=== PATIENT | female | born 1990 | race Caucasian/White ===

== ENCOUNTER 2023-05-27 06:24 | Inpatient (IN) | payer MEDICAID, SELFPAY ==
[2023-05-27] VITALS (123 sets, daily range): BP systolic 100–133; BP diastolic 30–85; PULSE 25–241; RESP 16–18; TEMP 36.4–37.3; O2SAT 79–100; BMI 30.8
--- NOTE | ~2023-05-27 | US_ITS ---
EXAMINATION: US OB follow up DATE: 05/27/2023 08:36 INDICATION: growth assessment during third trimester , no care TECHNIQUE: Real-time ultrasound of the pelvis was performed. The interpreting radiologist was not pre sent for the study. COMPARISON: None. FINDINGS: There is a single living fetus in vertex presentation. The placenta is anterior. card iac activity and movement are noted. heart rate is 143 beats per minute (bpm). The amniot ic fluid index is 18.5 which is normal (normal range: 7.5 cm to 24.4 cm). The following biometric data were obtained: Biparietal diameter (BPD): 8.4 cm; head circumference (HC): 32.7 cm; abdominal circumference (AC): 34 .7 cm; femur length (FL): 7.5 cm. Estimated weight is 3319 g +/- 497 g. The femoral length to b iparietal diameter ratio is greater than two standard deviations above the mean. As single measurements, these parameters are each equal to the following estimated gestational ages w ith ranges of +/- 2 standard deviations: BPD: 33 weeks 6 days +/- 3 weeks 1 days. HC: 37 weeks 1 days +/- 2 weeks 5 days. AC: 38 weeks 5 days +/- 3 weeks 0 days. FL: 38 weeks 4 days +/- 3 weeks 1 days. estimated gestational age based solely on measurements from this exam is 37 weeks 1 days +/- 2 weeks 4 days. IMPRESSION: 1. Single living fetus in vertex presentation. 2. estimated gestational age based solely on measurements from this exam is 37 weeks 1 days +/- 2 weeks 4 days within estimated due date of 06/16/2023. Reviewed, dictated and finalized at location B. AND DIE MAKER APPRENTICE
[2023-05-27 07:20] LABS: Basophils Absolute Auto 0.1 K/mm3 (0.0-0.1); Basophils Percent Auto 0.3 % (0.2-1.2); Eosinophils Absolute Auto 0.1 K/mm3 (0-0.3); Eosinophils Percent Auto 0.4 % (0-4.4); Hematocrit 34.4 % (37.0-47.0); Immature Granulocyte Absolute 0.63 K/mm3 (0.00-0.031); Immature Granulocyte Percent A 2.5 % (0-0.5); Lymphocytes Absolute Auto 1.64 K/mm3 (0.9-3.2); Lymphocytes Percent Auto 6.4 % (18.3-44.2); Mean Corpuscular Hemoglobin 28.8 pg (26-34); Mean Corpuscular Volume 90.1 fl (80-100); Mean Platelet Volume 11.3 fl (7.4-10.4); Monocytes Absolute Auto 1.5 K/mm3 (0.1-0.6); Monocytes Percent Auto 5.8 % (2.6-8.5); Neutrophils Absolute Auto 21.7 K/mm3 (1.3-6.7); Neutrophils Percent Auto 84.6 % (45.5-73.1); Platelet Count Result 338 k/mm3 (150-375); Red Blood Count 3.82 M/mm3 (4.2-5.4); Red Cell Distribution Width 14.5 % (11.5-14.5); White Blood Count 25.7 K/mm3 (4.5-10.0)
[2023-05-27] MEDS: LACTATED RINGERS 1,000 ML 999 ML IV CONT (07:36)
[2023-05-27 07:37] LABS: Amphetamine Screen Urine Negative (Negative); Barbiturate Screen Urine Negative (Negative); Benzodiazepines Screen Urine Negative (Negative); Cannabinoid Screen Urine Positive (Negative); Cocaine Screen Urine Negative (Negative); Methadone Screen Urine Negative (Negative); Opiate Screen Urine Negative (Negative); Phencyclidine Screen Urine Negative (Negative)
[2023-05-27 07:43] LABS: Alanine Aminotransferase 17 U/L (6-35); Albumin Level 3.6 g/dL (3.5-5.1); Alkaline Phosphatase 198 U/L (38-126); Anion Gap 8 mmol/L (8-16); Aspartate Amino Transferase 24 U/L (14-36); Bilirubin,Total 0.3 mg/dL (0.2-1.3); Blood Urea Nitrogen 16 mg/dL (7-17); Carbon Dioxide 17 mmol/L (22-30); Chloride 107 mmol/L (98-107); Estimated Glomerular Filt Rate > 60; Glucose 91 mg/dL (65-110); Potassium 3.9 mmol/L (3.4-5.0); Sodium 132 mmol/L (137-145); Uric Acid 4.8 mg/dL (2.5-7.5)
[2023-05-27 07:44] LABS: Creatinine Urine 33.9 mg/dL
[2023-05-27 07:46] LABS: Total Protein Urine Random < 5 mg/dL; Ur Ttl Prot Creatinine Ratio < 0.15 mg/mg (0-0.20)
[2023-05-27] MEDS: AMPICILLIN 2 GM/NS 100 ML 2 GM/100 ML BAG IVPB (07:50)
[2023-05-27 07:51] LABS: Appearance Urine Clear (Clear); Bacteria Urine None Seen /hpf; Bilirubin Urine Negative (Negative); Blood Urine Negative (Negative); Color Urine Yellow (Yellow); Glucose Urine UA Negative (Negative); Ketones Urine Negative (Negative); Leukocyte Esterase Ur 1+ LEU/UL (NEGATIVE); Need Manual Microscopic Reviewed; Nitrate Urine Negative (Negative); Non Pathogenic Casts 0-2; Protein Urine Negative (Negative); RBC Urine 0-2 /hpf (0-2); Specific Grav Ur 1.013 (1.001-1.035); Squamous Epithelial Cell Urine None seen /hpf (Few); Urobilinogen Urine 0.2 mg/dL (<2.0); WBC Urine 0-5 /hpf (0-3)
[2023-05-27 07:53] LABS: Add Urine Microscopic? YES
[2023-05-27 08:06] LABS: HIV 1/2 Ab P24 Ag Result Negative (Negative)
[2023-05-27 08:27] LABS: Hepatitis B Surface Antigen Negative (Negative); Rubella IgG Antibody 27.7 IU/ML
[2023-05-27 09:43] LABS: Rapid Plasma Reagin Reactive (NonReactive)
--- NOTE | 2023-05-27 09:48 | WPDANESEPP ---
Anes - Eval Pre Procedure Procedure: labor epidural Date/Time: 05/27/23 09:48 Surgeon: fredi Preop Diagnosis: pain during labor Pre Op Diagnosis: Labor Patient Data Age: 33 Gender: F Height: 1.57 m Weight: 76.5 kg Last Vital Signs Temp 36.4 C 05/27/23 09:19 Pulse 92 05/27/23 09:45 Resp 16 05/27/23 06:49 BP 116/77 05/27/23 09:45 O2 Del Method Room Air 05/27/23 08:11 Allergies Allergy/AdvReac Type Severity Reaction Status Date / Time naproxen Allergy Hives Verified 05/27/23 07:50 Home Medications Medication Instructions Recorded Confirmed Type No Home Medications 05/27/23 05/27/23 History Laboratory Tests 05/27/23 05/27/23 06:59 07:05 WBC 25.7 H K/mm3 (4.5-10.0) RBC 3.82 L M/mm3 (4.2-5.4) Hgb 11.0 L g/dL (12.0-15.0) Hct 34.4 L % (37.0-47.0) MCV 90.1 fl (80-100) MCH 28.8 pg (26-34) MCHC 32.0 g/dl (32-36) RDW 14.5 % (11.5-14.5) Plt Count 338 k/mm3 (150-375) MPV 11.3 H fl (7.4-10.4) Immature Gran % (Auto) 2.5 H % (0-0.5) Neut % (Auto) 84.6 H % (45.5-73.1) Lymph % (Auto) 6.4 L % (18.3-44.2) [place] % (Auto) 5.8 % (2.6-8.5) Eos % (Auto) 0.4 % (0-4.4) Baso % (Auto) 0.3 % (0.2-1.2) Lymph # (Auto) 1.64 K/mm3 (0.9-3.2) [place] # (Auto) 1.5 H K/mm3 (0.1-0.6) Eos # (Auto) 0.1 K/mm3 (0-0.3) Baso # (Auto) 0.1 K/mm3 (0.0-0.1) Abs Immat Gran (auto) 0.63 H K/mm3 (0.00-0.031) Absolute Neuts (auto) 21.7 H K/mm3 (1.3-6.7) Absolute Nucleated RBC 0.0 K/mm3 (0.0-0.012) Nucleated RBC % 0.0 % (0.0-0.2) Sodium 132 L mmol/L (137-145) Potassium 3.9 mmol/L (3.4-5.0) Chloride 107 mmol/L (98-107) Carbon Dioxide 17 L mmol/L (22-30) Anion Gap 8 mmol/L (8-16) BUN 16 mg/dL (7-17) Creatinine 0.50 L mg/dL (0.7-1.0) Estim Creat Clear Calc Not Reportable Estimated GFR > 60 (59 - ) Glucose 91 mg/dL (65-110) Uric Acid 4.8 mg/dL (2.5-7.5) Calcium 9.0 mg/dL (8.4-10.2) Total Bilirubin 0.3 mg/dL (0.2-1.3) AST 24 U/L (14-36) ALT 17 U/L (6-35) Alkaline Phosphatase 198 H U/L (38-126) Total Protein 7.0 g/dL (6.3-8.2) Albumin 3.6 g/dL (3.5-5.1) Urine Color Yellow (Yellow) Urine Appearance Clear (Clear) Urine pH 6.0 (5.0-9.0) Ur Specific [place] 1.013 (1.001-1.035) Urine Protein Negative mg/dL (Negative) Urine Glucose (UA) Negative mg/dL (Negative) Urine Ketones Negative mg/dL (Negative) Ur Blood (Man) Negative (Negative) Urine Nitrate Negative (Negative) Urine Bilirubin Negative (Negative) Urine Urobilinogen 0.2 mg/dL (<2.0) Ur Leukocyte Esterase 1+ H [place]/UL (NEGATIVE) Add Ur Microanalysis Reviewed Urine RBC 0-2 /hpf (0-2) Urine WBC 0-5 /hpf (0-3) Ur Squamous Epith Cells None seen /hpf (Few) Urine Bacteria None seen /hpf Urine Casts 0-2 U Random Total Protein < 5 mg/dL Urine Creatinine 33.9 mg/dL Protein/Creat Ratio 2 < 0.15 mg/mg (0-0.20) Urine Opiates Screen Negative (Negative) Urine Methadone Screen Negative (Negative) Ur Barbiturates Screen Negative (Negative) Ur Phencyclidine Scrn Negative (Negative) Ur Amphetamine Screen Negative (Negative) U Benzodiazepines Scrn Negative (Negative) Urine Cocaine Screen Negative (Negative) U Cannabinoids Screen Positive A (Negative) RPR Reactive A (NonReactive) T.pallidum Ab (FTA-ABS) Pending Hep Bs Antigen Negative (Negative) HIV 1&2 Ab/P24 Ag 4thGn Negative (Negative) Rubella IgG Antibody 27.7 IU/ML
--- NOTE | 2023-05-27 10:00 | PM.IMHP ---
H&P: HPI History of Present Illness Date/Time: 05/27/23 10:00 Chief Complaint: Contractions Narrative: 33 y/o presented via ambulance with c/o contractions which started becoming regular at 5 am. She has not had any care. She thinks her edc is beginning of Mar based on unsure LMP. She has a history of chronic hypertension as a child and was medicated from age [age] with Clonidine. She had 2 vaginal deliveries. She has h/o marijuane use and smokes approximately 2-3 cigs/week. Denies spotting or leaking. Ultrasound today showed fetus cephalic 37 weeks. BP increased per EMS, she has had normal blood pressures since presenting to L and D. Review of Systems Review of Systems: All systems reviewed & are unremarkable except as noted in HPI and below Constitutional: Constitutional: Reports no additional constitutional complaints and Denies headache(s) Eyes: Eyes: Denies spots in vision ENT: Reports system reviewed and no additional complaints, except as documented and Denies headache(s) Cardiovascular: Cardiovascular: Denies chest pain and Denies dyspnea Respiratory: Respiratory: Denies dyspnea Gastrointestinal: Gastrointestinal: Reports no additional gastrointestinal complaints Genitourinary: Genitourinary: Reports amenorrhea Musculoskeletal: Musculoskeletal: Reports no additional musculoskeletal complaints Integumentary/Breasts: Skin/Breast: Denies breast mass and Denies rash Neurologic: Denies headache(s) Psychiatric: Psychiatric: Reports no additional psychiatric complaints [facility] Past Medical History Medical History (Updated 05/27/23 @ 09:49 by Mable Kang CRNA) HTN (hypertension) IUP (intrauterine ), incidental Social History Social History Smoking status: Current every day smoker Tobacco type: cigarettes and e-cigarettes/vaping Second hand tobacco smoke exposure: Yes Substance use: former Do You Feel Safe in your Home?: Yes Lack of Transportation: No Lack of Food: Never True Current Housing: I Do Not Have Housing Concerned About Future Housing: No Difficulty Paying Gas/Electric Bills: No Difficulty Paying for Meds: No Currently Unemployed: YES Education: Grade School Difficulty w/ Childcare or Family Care: No Spiritual care concerns: No Meds Home Medications and Allergies Home Medications Medication Instructions Recorded Confirmed Type No Home Medications 05/27/23 05/27/23 History Allergies Allergy/AdvReac Type Severity Reaction Status Date / Time naproxen Allergy Hives Verified 05/27/23 07:50 Vital Signs Vital Signs - 24 hr 05/27/23 06:46 05/27/23 06:49 05/27/23 07:01 Temperature 98 F Pulse Rate 98 99 Respiratory Rate 16 Blood Pressure 129/78 111/85 Oxygen Delivery 05/27/23 07:18 05/27/23 07:30 05/27/23 07:45 Temperature Pulse Rate 92 93 93 Respiratory Rate Blood Pressure 125/63 127/85 133/83 Oxygen Delivery 05/27/23 08:00 05/27/23 08:15 05/27/23 08:30 Temperature 97.8 F Pulse Rate 92 88 86 Respiratory Rate Blood Pressure 113/80 126/76 125/73 Oxygen Delivery 05/27/23 08:45 05/27/23 09:01 05/27/23 09:16 Temperature Pulse Rate 90 87 98 Respiratory Rate Blood Pressure 120/75 124/69 121/65 Oxygen Delivery 05/27/23 09:19 05/27/23 09:30 05/27/23 09:45 Temperature 97.6 F Pulse Rate 92 92 Respiratory Rate Blood Pressure 119/75 116/77 Oxygen Delivery 05/27/23 07:57 05/27/23 08:11 Temperature 97.8 F Pulse Rate Respiratory Rate Blood Pressure Oxygen Delivery Room Air Exam Const: General: no acute distress Eyes: General: appearance normal, both eyes and all related structures Neck: Neck: normal visual inspection Resp: Effort & Inspection: normal respiratory effort Cardio: Rate: regular rate GI: Inspection: normal to inspection Other: Gravid no fundal tenderness no right upper quadrant pain : External Fem
[2023-05-27] MEDS: LACTATED RINGERS 1,000 ML 125 ML IV CONT ×2 (11:14→13:54)
[2023-05-27] MEDS: AMPICILLIN 1 GM/NS 50 ML 1 GM/50 ML BAG IVPB (11:42)
--- NOTE | 2023-05-27 12:14 | P.PNOB_ITS ---
OB - PN: Subj Subjective Date/time seen: 05/27/23 1155 Interval history: FHT 135 cat 1, AROM clear, 7/c/-2. Continue expectant management. OB - PN: Obj Data Labs 05/27/23 07:05 05/27/23 06:59 Labs: Laboratory Results - last 24 hr 05/27/23 05/27/23 06:59 07:05 WBC 25.7 H RBC 3.82 L Hgb 11.0 L Hct 34.4 L MCV 90.1 MCH 28.8 MCHC 32.0 RDW 14.5 Plt Count 338 MPV 11.3 H Immature Gran % (Auto) 2.5 H Neut % (Auto) 84.6 H Lymph % (Auto) 6.4 L [place] % (Auto) 5.8 Eos % (Auto) 0.4 Baso % (Auto) 0.3 Lymph # (Auto) 1.64 [place] # (Auto) 1.5 H Eos # (Auto) 0.1 Baso # (Auto) 0.1 Abs Immat Gran (auto) 0.63 H Absolute Neuts (auto) 21.7 H Absolute Nucleated RBC 0.0 Nucleated RBC % 0.0 Sodium 132 L Potassium 3.9 Chloride 107 Carbon Dioxide 17 L Anion Gap 8 BUN 16 Creatinine 0.50 L Estim Creat Clear Calc Not Reportable Estimated GFR > 60 Glucose 91 Uric Acid 4.8 Calcium 9.0 Total Bilirubin 0.3 AST 24 ALT 17 Alkaline Phosphatase 198 H Total Protein 7.0 Albumin 3.6 Urine Color Yellow Urine Appearance Clear Urine pH 6.0 Ur Specific [place] 1.013 Urine Protein Negative Urine Glucose (UA) Negative Urine Ketones Negative Ur Blood (Man) Negative Urine Nitrate Negative Urine Bilirubin Negative Urine Urobilinogen 0.2 Ur Leukocyte Esterase 1+ H Add Ur Microanalysis Reviewed Urine RBC 0-2 Urine WBC 0-5 Ur Squamous Epith Cells None seen Urine Bacteria None seen Urine Casts 0-2 U Random Total Protein < 5 Urine Creatinine 33.9 Protein/Creat Ratio 2 < 0.15 Urine Opiates Screen Negative Urine Methadone Screen Negative Ur Barbiturates Screen Negative Ur Phencyclidine Scrn Negative Ur Amphetamine Screen Negative U Benzodiazepines Scrn Negative Urine Cocaine Screen Negative U Cannabinoids Screen Positive A RPR Reactive A Hep Bs Antigen Negative HIV 1&2 Ab/P24 Ag 4thGn Negative Rubella IgG Antibody 27.7 Blood Type O Positive Antibody Screen Negative Imaging Radiologist's impression: Impressions Obstetrics Ultrasound 05/27/23 08:56 IMPRESSION: 1. Single living fetus in vertex presentation. 2. estimated gestational age based solely on measurements from this exam is 37 weeks 1 days +/- 2 weeks 4 days within estimated due date of 06/16/2023. OB - PN A/P Time Spent With Patient Time: Total time spent is greater than 50% in coordination of care (as documented) at patient's floor/unit and/or counseling patient:
[2023-05-27] MEDS: OXYTOCIN 30 UNITS/NS 500 ML 30 UNITS/500 ML BAG IV CONT (14:00)
[2023-05-27] MEDS: OXYTOCIN 30 UNITS/NS 500 ML 30 UNITS/500 ML BAG 999 UNITS IV CONT (15:12)
--- NOTE | 2023-05-27 15:29 | P.PCNOB_ITS ---
OB - Vaginal Delivery Note Procedure Delivery date: 05/27/23 Events: No Care Delivery augmentation: Rupture of Membranes and Pitocin Delivery monitor: External FHT and Internal Uterine Route of delivery: Episiotomy description: None Laceration Description: Vaginal (first degree vaginal hemostasis with 3.0 vicryl figure of eight) Delivery repair: vicryl (3.0 vicryl) Specimen: No Quantitative Blood Loss (ml): 150 Anesthesia type: Epidural Disposition: Floor Complications: No immediate complications Narrative: She was admitted in labor. She was started on IV antibiotics for unknown GBS. She is 37 weeks by todays ultrasound. She progressed to 7 and had AROM clear. She progressed to complete. She pushed for over two hours and delivered a male infant in ROP position. placed on maternal abdomen. Infant vigorously crying on delivery. Pitocin started. Placenta delivered spontaneously and intact. She had a small laceration at vaginal entrance needed a stitch for hemostasis. Hemostasis obtained. She was informed of an initial positive RPR. She was informed that that could mean exposure to syphillis or it could be a false test and the confirmation test takes several working days to return. Peds will be made aware of the initial test result. [place] Baby Date of : 05/27/23 Time of : 15:10 Weeks of gestation at delivery: 37 Infant gender: Male presentation: vertex position: Right Occiput Posterior Placenta delivery description: Spontaneous Cord Vessel Description: 3 Vessels, Clamped/Cut and Delayed Cord Clamping (45 sec) score one minute: 8 score five minutes: 9
[2023-05-27] MEDS: OXYTOCIN 30 UNITS/NS 500 ML 30 UNITS/500 ML BAG 125 UNITS IV CONT (15:46)
[2023-05-27] MEDS: ACETAMINOPHEN 325 MG TABLET 650 MG PO (17:59)
[2023-05-27] MEDS: WITCH HAZEL 40 PADS 1 PAD TOPICAL (17:59)
[2023-05-27] MEDS: BENZOCAINE 20% AER SPR (*SP) 56 GM CAN 1 SPRAY TOPICAL (17:59)
--- NOTE | 2023-05-27 18:10 | OBPPTRN ---
Patient transferred to post room #285 via wheelchair. Support person present. Oriented to unit, room, information board, rooming in, admission packet and security measures. Patient verbalizes understanding.
[2023-05-28 04:36] LABS: Hematocrit 33.5 % (37.0-47.0); Hemoglobin 10.8 g/dL (12.0-15.0)
--- NOTE | 2023-05-28 09:00 | PC.NURSE ---
PT introductions made and plan of care discussed per post , pain management, bottle feeding, daily care activities and Social Service consult provided. PT and fob both recipients of such instructions and no barriers to learning identified at this time. PT received such instructions per one to one discussion, mom baby care guide and demonstrations this shift. PT verbalized understanding of such care.
[2023-05-28 10:00] VITALS: BP 109/71; PULSE 92; RESP 18; TEMP 36.4; O2SAT 100
--- NOTE | 2023-05-28 10:04 | P.PNOB_ITS ---
OB - PN: Subj Subjective Date/time seen: 05/28/23 10:04 Patient comments: no complaints, pain well controlled and tolerating diet [place] baby status: doing well OB - PN: Obj Data Labs 05/28/23 04:02 05/27/23 06:59 Labs: Laboratory Results - last 24 hr 05/28/23 04:02 Hgb 10.8 L Hct 33.5 L OB - PN A/P Assessment and Plan (1) Vaginal delivery: Code(s): O80 - Encounter for full-term uncomplicated delivery Status: Acute Assessment and Plan: PPD1. She is doing well. Social service has been consulted. She was given option for discharge. (2) Positive RPR test: Code(s): A53.0 - Latent syphilis, unspecified as early or late Status: Acute Assessment and Plan: She has been made aware confirmation will usually take to early to mid next week. Peds aware. Plan day: 1 Time Spent With Patient Time: Total time spent is greater than 50% in coordination of care (as documented) at patient's floor/unit and/or counseling patient: Exam Const: General: comfortable Psych: Affect: normal affect Other: Abd: fundus firm below umbilicus, nontender Ext: nontender
[2023-05-28] MEDS: DOCUSATE SODIUM 100 MG CAPSULE PO (10:20)
--- NOTE | 2023-05-28 10:21 | WPDANLDPN2 ---
Anes-Prog Note L&D Date/Time: 05/28/23 10:21 Comfortable throughout: labor and delivery Neuraxial method: epidural Epidural/Spinal procedure site: clean & non-tender Neuro status: Neuro function grossly intact. Cardiovascular status: normal Respiratory status: normal Airway patency: baseline Mental status: baseline Post-Op hydration status: normal Vital Signs: Last Vital Signs Temp 98.5 F 05/27/23 23:15 Pulse 84 05/27/23 23:15 Resp 18 05/27/23 23:15 BP 105/69 05/27/23 23:15 Pulse Ox 99 05/27/23 23:15 O2 Del Method Room Air 05/27/23 08:11 Pain score (VAS): 0 Post-procedural complaints: none Patient feedback: Patient satisfied with anesthetic care.
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
[2023-05-28 20:05] VITALS: BP 113/71; PULSE 74; RESP 18; TEMP 36.5; O2SAT 100
[2023-05-29 08:15] VITALS: BP 101/69; PULSE 75; RESP 20; TEMP 36.4; O2SAT 100
--- NOTE | 2023-05-29 08:19 | PCCCNOTE ---
Per Care Coordination. Per RNJanett, when [facility] security investigator, Connor was out yesterday, she reports to call [facility] hotline when baby ready for discharge. She is leaning toward baby going home with mother and FOB as currently Umbilical drug screen testing is pending and no postive UDS for baby at this time. Baby likely to be here about 10 days per RN due to antibiotics, so hopefully will have umb. drug screen testing back by that time. Will follow.
--- NOTE | 2023-05-29 09:36 | P.DS_ITS ---
DS: Admitting Diagnosis Discharge Date 05/29/23 Admitting Diagnosis Active labor DS: Discharge Diagnosis Discharge Diagnosis (1) Vaginal delivery: Code(s): O80 - Encounter for full-term uncomplicated delivery Status: Acute (2) Positive RPR test: Code(s): A53.0 - Latent syphilis, unspecified as early or late Status: Acute OB - DS: Summary Hospital Course Hospital Course: She was admitted in labor via ambulance in labor. History of no care. She had an uncomplicated vaginal delivery. Her OB labs obtained at admission was significant for positive RPR. She declines known exposure. Confirmation test pending. She did well . On day two she was not taking any pain medication, she was ambulating well, tolerating regular diet. She was discharged to [facility] bed due to baby on antibiotics. Anticipate confirmation test this week. OB Procedures : None OB Procedures Intrapartum: Spontaneous Vag Delivery OB Procedures: : None Peripartum Data Infant Delivery Method: Natural Vaginal Laceration Description: Vaginal (first degree vaginal hemostasis with 3.0 vicryl figure of eight) Episiotomy description: None complications: none Status at Discharge Functional status at discharge: independent ambulation Time Spent with Patient Time attestation: Total time spent providing and/or coordinating discharge services: Exam Const: General: cooperative Orientation/consciousness: oriented to person, oriented to place and oriented to time HENMT: Face/Nose/Sinus: Normal external nose present Eyes: General: appearance normal, both eyes and all related structures Resp: Effort & Inspection: normal respiratory effort GI: Inspection: normal to inspection Skin: General skin exam: normal color Neuro: General: oriented to person, oriented to place and oriented to time Extrem: General: normal to inspection and no calf tenderness Psych: Appearance: grossly normal Mental Status: mental status grossly normal Discharge Plan Discharge Attending physician on discharge: Corona Granda Consulting providers: Mable Kang Discharging Clinician: Corona Granda Anticipated Discharge Date/Time: 05/29/23 17:33 Patient Disposition: Home, Self-Care Activity: may shower and pelvic rest Diet: regular Patient Instructions: Antibiotic Form, How to Stop Smoking (DC), Vaginal Delivery (DC) Stand Alone Forms: General Discharge Information Follow-up/Referrals: Corona Granda MD [Physician] - 4 Weeks (call for appointment) Discharge Medications: No Action No Home Medications Date of admission: 05/27/23 06:24 Primary Care Provider: UNKNOWN,DOCTOR Admitting Provider: Corona Granda Attending physician on admission: Corona Granda Condition: Stable
[2023-05-30 09:01] VITALS: BP 116/71; PULSE 73; RESP 18; TEMP 36.2; O2SAT 100
[2023-05-31 19:38] LABS: Treponema pallidum Ab FTA ABS Reactive (Nonreactive)
== END 2023-05-29 17:20 | disposition home or self-care (01) | DRG 560 ==
LOC: ANHLDR 09:59 → ANHOB2 18:44
PROVIDERS: Admitting Provider Obstetrics & Gynecology; Visit Provider Obstetrics & Gynecology
DX: O10.92 Unspecified pre-existing hypertension complicating childbirth (principal); O99.324 Drug use complicating childbirth; F12.90 Cannabis use, unspecified, uncomplicated; O99.334 Smoking (tobacco) complicating childbirth; F17.210 Nicotine dependence, cigarettes, uncomplicated; O70.0 First degree perineal laceration during delivery; Z3A.37 37 weeks gestation of pregnancy; Z37.0 Single live birth; O98.12 Syphilis complicating childbirth; A53.0 Latent syphilis, unspecified as early or late
CPT/HCPCS: 36415; 76816; 80053; 80307; 81001; 82570; 84156; 84550; 85014; 85018; 85025; 86592; 86593; 86703; 86762; 86780; 86850; 86900; 86901; 87340; A9270; G0432; J0290; J2590; J2795; J7120

== ENCOUNTER 2023-06-01 10:30 | Observation (INO) | payer MEDICAID, SELFPAY ==
[2023-06-01] MEDS: PENICILLIN G BENZATHINE 2,400,000 UNITS/4 ML SYRINGE 2400000 UNITS IM (13:08)
--- NOTE | 2023-06-01 19:37 | PC.NURSE ---
Telephone order given by Dr. Granda to run RPR titers to discover if this infection is a recent exposure/infection. shipfitters supervisor, Marybel, notified. She placed a call to [facility] to inquire if lab could be run on the previously drawn sample or if a new sample would need to be obtained. [facility] did not return call. New sample obtained and sent to lab at [facility]. Marybel stated that she would enter the necessary lab order when [facility] responded to which sample would be most appropriate to run test. At the time of this writing, [facility] has not responded to inquiry. Marybel and blood bank [facility], both aware and written communication left regarding situation.
--- NOTE | 2023-06-27 11:55 | PM.OBTRLD ---
OB - Triage/Final Diagnosis Visit Information Comments/Additional reasons for admission: I have assessed the risk for this patient, Tahmina Silverio, and determined that she would benefit from observation care. Final Diagnosis (1) Acquired syphilis: Code(s): A53.9 - Syphilis, unspecified Status: Acute
== END 2023-06-01 14:00 | disposition home or self-care (01) ==
PROVIDERS: Admitting Provider Obstetrics & Gynecology; Visit Provider Obstetrics & Gynecology
DX: O98.13 Syphilis complicating the puerperium (principal); A53.9 Syphilis, unspecified
CPT/HCPCS: 96372; G0378; G0379; J0561